=== PATIENT | female | born 1975 | race Caucasian/White ===

== ENCOUNTER → 2024-12-17 | Outpatient (CLI) | payer MEDICAID ==
--- NOTE | 2024-12-24 22:07 | HM ---
HOLTER MONITOR REPORT CLINICAL INFORMATION: The patient's baseline rhythm is a sinus mechanism. The average rate 85 beats per minute, minimum of 56, maximum of 145 beats per minute. Supraventricular ectopic activity was present in the form of rare single PACs. No ventricular ectopic activity was noted. No symptoms were reported. CONCLUSIONS: 1. Sinus mechanism, baseline rhythm. 2. Rare supraventricular ectopic activity with single PACs. 3. No ventricular ectopic activity. 4. No symptoms were reported. MMODL / IJN: [id number] /
== END | disposition home or self-care (01) ==
LOC: RADECHMAIN 11:27
PROVIDERS: ATTEND Family Medicine
DX: R00.2 Palpitations (principal); I49.3 Ventricular premature depolarization
CPT/HCPCS: 93225

== ENCOUNTER → 2024-12-18 | Outpatient (CLI) | payer MEDICAID ==
[2024-12-18 10:31] LABS: Basophils # (A) 0.08 X 10*3/uL (0.00-0.10); Basophils % (A) 1.3 %; Eosinophils # (A) 0.13 X 10*3/uL (0.04-0.35); Eosinophils % (A) 2.2 %; HCT 39.5 % (37.2-46.3); HGB 12.9 g/dL (12.0-15.0); Lymphocytes # (A) 2.62 X 10*3/uL (0.90-5.00); MCH 30.3 pg (27.0-32.0); MCHC 32.7 g/dL (32.0-37.0); MCV 92.7 FL (80.0-97.0); Monocytes # (A) 0.72 X 10*3/uL (0.20-1.00); Monocytes % (A) 12.1 %; NRBC Per 100 WBC 0 X 10*3/uL (0.00-0.01); Neutrophils % (A) 40.2 %; Platelet Count 334 X 10*3/uL (140-440); RBC 4.26 X 10*6/uL (4.10-5.20); WBC 5.96 X 10*3/uL (4.50-10.00)
[2024-12-18 11:13] LABS: ALT 13 U/L (8-44); AST 23 U/L (13-35); Albumin 4.4 g/dL (3.8-4.9); Albumin/Globulin Ratio 1.52 Ratio (1.60-3.17); Alkaline Phosphatase 66 U/L (41-126); Blood Urea Nitrogen 8.4 mg/dL (9.0-27.0); Calcium 9.8 mg/dL (8.7-10.3); Carbon Dioxide 25.5 mmol/L (21.6-31.8); Chloride 104 mmol/L (96-109); Chol/HDL Ratio 2.21 Ratio; Globulin 2.9 g/dL (1.6-3.3); Glucose 99 mg/dL (70-110); LDL Cholesterol,Calculated 104.5 mg/dL (0.0-131.0); Magnesium 1.7 mg/dL (1.5-2.4); Potassium 4.8 mmol/L (3.5-5.5); Sodium 140 mmol/L (135-145); T4, Free (Free Thyroxine) 1.16 ng/dL (0.80-1.80); Total Bilirubin 0.6 mg/dL (0.3-1.2); Total Protein 7.3 g/dL (6.2-8.2); VLDL Calculation 11.24 mg/dL (5.00-40.00)
== END | disposition home or self-care (01) ==
LOC: LABWHC1 07:12
PROVIDERS: ATTEND Family Medicine
DX: Z00.00 Encounter for general adult medical examination without abnormal findings (principal)
CPT/HCPCS: 36415; 80053; 80061; 82306; 82607; 83036; 83735; 84439; 84443; 85025

== ENCOUNTER → 2024-12-24 | Outpatient (CLI) | payer MEDICAID ==
--- NOTE | 2024-12-25 07:44 | CA ---
Transthoracic Echo Report Name: Shania Alexander Age: 49 Gender: F : 1975 Exam Date: 12/24/2024 13:20 Exam Location: [facility] Ht (in): 66 Wt (lb): 130 Ordering Physician: Carolyne Loera MD Attending/Referring Phys: Service Developer Marta Rucker RDCS Procedure CPT: Indications: R00.2 palpitations Cardiac Hx: Technical Quality: Fair Contrast 1: Total Dose (mL): Contrast 2: Total Dose (mL): MEASUREMENTS (Male / Female) Normal Values 2D ECHO LV Diastolic Diameter PLAX 4.3 cm 4.2 - 5.9 / 3.9 - 5.3 cm LV Systolic Diameter PLAX 2.8 cm IVS Diastolic Thickness 0.8 cm 0.6 - 1.0 / 0.6 - 0.9 cm LVPW Diastolic Thickness 0.8 cm 0.6 - 1.0 / 0.6 - 0.9 cm LV Relative Wall Thickness 0.4 RV Internal Dim ED PLAX 2.8 cm LA Systolic Diameter LX 2.8 cm 3.0 - 4.0 / 2.7 - 3.8 cm LV Diastolic Volume MOD BP 61.8 cm??? 67 - 155 / 56 - 104 cm??? LV Systolic Volume MOD BP 17.1 cm??? - 58 / 19 - 49 cm??? LV Ejection Fraction MOD BP 72.3 % >= 55 % LV Cardiac Index MOD BP 2267.1 cm???/min???m??? LV Diastolic Volume MOD 4C 47.2 cm??? LV Systolic Volume MOD 4C 12.2 cm??? LV Ejection Fraction MOD 4C 74.1 % LV Cardiac Index MOD 4C 1774.8 cm???/min???m??? LV Diastolic Length 4C 5.9 cm LV Systolic Length 4C 4.3 cm LV Diastolic Volume MOD 2C 66.7 cm??? LV Systolic Volume MOD 2C 26.4 cm??? LV Ejection Fraction MOD 2C 60.4 % LV Cardiac Index MOD 2C 2045.6 cm???/min???m??? LV Diastolic Length 2C 6.8 cm LV Systolic Length 2C 4.8 cm LA Volume 25.4 cm??? 18 - 58 / 22 - 52 cm??? LA Volume Index 15.4 cm???/m??? 16 - 28 cm???/m??? M-MODE Aortic Root Diameter MM 2.7 cm AV Cusp Separation MM 1.8 cm DOPPLER MV Area PHT 3.2 cm??? Mitral E Point Velocity 91.7 cm/s Mitral A Point Velocity 81.0 cm/s Mitral E to A Ratio 1.1 MV Deceleration Time 235.6 ms TR Peak Velocity 228.8 cm/s TR Peak Gradient 20.9 mmHg Right Ventricular Systolic Press 25.9 mmHg FINDINGS Left Ventricle Left ventricular ejection fraction is estimated at 55-60 %. Left ventricular cavity size normal. Left ventricular wall thickness normal. Normal left ventricular wall motion. Right Ventricle Normal right ventricular size and function. Right ventricular systolic pressure within normal limits. Right Atrium Normal right atrial size. No right atrial thrombus or mass seen. Left Atrium Normal left atrial size. No left atrial thrombus or mass present. Mitral Valve Structurally normal mitral valve. No evidence for mitral valve prolapse. No mitral stenosis. Mild mitral regurgitation. Aortic Valve Trileaflet aortic valve. No aortic valve stenosis or regurgitation. Tricuspid Valve Structurally normal tricuspid valve. Mild tricuspid regurgitation. Pulmonic Valve Pulmonic valve not well visualized. No pulmonic regurgitation. Pericardium No pericardial effusion. Aorta Normal size aortic root and proximal ascending aorta. CONCLUSIONS Technically difficult study. Normal left ventricular size and systolic function Mild mitral and tricuspid regurgitation with no evidence of pulmonary hypertension Previewed by: Dr. Tee Barragan MD (Electronically Signed) Final Date: 25 December 2024 07:43
== END | disposition home or self-care (01) ==
LOC: RADECHMAIN 13:20
PROVIDERS: ATTEND Family Medicine
DX: I08.1 Rheumatic disorders of both mitral and tricuspid valves (principal); R00.2 Palpitations
CPT/HCPCS: 93306

== ENCOUNTER → 2025-01-01 | Outpatient (CLI) | payer MEDICAID ==
--- NOTE | 2025-01-01 08:55 | CT ---
EXAMINATION TYPE: CT abdomen pelvis wo con DATE OF EXAM: 01/01/2025 8:14 AM COMPARISON: None. CLINICAL INDICATION: Female, 49 years old with history of R10.9 ABD PAIN, Abdominal pain. Hx of back sx, concern for hardware and proximity to aorta. Hx of childhood ca, removal of LT kidney. Hx hystere ctomy. TECHNIQUE: Axial images with sagittal coronal reformats. Examination of the solid and hollow viscera is limited given the lack of contrast. CT DLP: 581 mGycm, Automated exposure control for dose reduction was used. FINDINGS: LUNG BASES: No evidence for nodule. No evidence for infiltrate. LIVER/GB: The gallbladder surgically absent. No space-occupying hepatic lesion. PANCREAS: No pancreatic mass identified. No inflammatory process seen. SPLEEN: No evidence for splenomegaly. No intrasplenic lesions seen. ADRENALS: No adrenal nodules identified. No evidence for thickening. KIDNEYS: Left nephrectomy change. Compensatory hypertrophy of the right kidney. No evidence for renal mass. No nephrolithiasis. No hydronephrosis. BOWEL: Appendix has a normal appearance. No evidence of bowel obstruction. No inflammatory process. Lymph nodes: No evidence for adenopathy greater than 1 cm. Retroperitoneal clips noted with resultant streak artifact. Abdominal aorta: Atheromatous changes seen. No evidence for aneurysm. Genital organs: Hysterectomy changes seen. No evidence for adnexal mass. Other: Pedicular screws and rods noted. The inferior right-sided pedicular screw at L3 extends beyond the margin of the vertebral body by approximately 7 mm and is located posterior to the inferior vena cava. Streak artifact limits evaluation. No obvious hemorrhage in this region. Additional right-side d pedicular screw at L2 extends beyond the margin of the anterior vertebral body by 7 mm and resides within the aorto intracaval region. Streak artifact again limits evaluation. No obvious hematoma. Pro ximal left pedicular screws at T11 and both extend beyond the margin of the vertebral body by approxi mately 8 mm the left-sided screw adjacent to the descending aorta. Visualized adjacent aorta appears to be intact. IMPRESSION: 1. Pedicular screws as discussed above which extend beyond the margins of the vertebral bodies. See a aly discussion. 2. No acute intra-abdominal process at this time. [facility], , 01/01/2025 8:53 AM
== END | disposition home or self-care (01) ==
LOC: RADCTMAIN 06:26
PROVIDERS: ATTEND Family Medicine
DX: T84.296A Other mechanical complication of internal fixation device of vertebrae, initial encounter (principal); Z90.5 Acquired absence of kidney; Z90.710 Acquired absence of both cervix and uterus; Z96.7 Presence of other bone and tendon implants
CPT/HCPCS: 74176